=== PATIENT | female | born 1990 ===

== ENCOUNTER 2018-01-03 15:11 | Emergency (ER) | payer SELFPAY ==
[~2018-01-03] VITALS: Ht 165.1 cm; Wt 77.1 kg
[2018-01-03 15:18] VITALS: BP 154/74
== END 2018-01-03 16:15 | disposition left against medical advice (07) ==
LOC: ER 15:11
DX: F41.9 Anxiety disorder, unspecified (principal); Z53.21 Procedure and treatment not carried out due to patient leaving prior to being seen by health care provider
CPT/HCPCS: 93005